=== PATIENT | male | born 1975 | race Two or more races ===

== ENCOUNTER 2023-01-24 11:38 | Emergency (ER) | payer SELFPAY ==
--- NOTE | 2023-01-24 11:49 | ED.URI ---
HPI - URI/Sore Throat General Chief Complaint: Back Pain/Injury <DARSHANA Correa - Last Filed: 01/24/23 11:52> Stated Complaint: Flu symptoms/Back pain <DARSHANA Correa - Last Filed: 01/24/23 11:52> Time Seen by Provider: 01/24/23 13:57 <DARSHANA Correa - Last Filed: 01/24/23 11:52> Source: patient <Angelita Jean NP - Last Filed: 01/24/23 14:57> Mode of arrival: ambulatory <Angelita Jean NP - Last Filed: 01/24/23 14:57> Limitations: no limitations <Angelita Jean NP - Last Filed: 01/24/23 14:57> History of Present Illness HPI Narrative: This is a 47-year-old male with a history of back pain who presents to the ER with complaints of acute on chronic back pain with no new injury or trauma. Patient reports that he has had back pain for greater than 6 years after having a work injury while he was in [place]. Patient reports he was taking medication for pain in [place] but he lost all his medications and moved here to [facility]. He denies any new injury or trauma. He reports pain radiates down the left leg with no associated numbness, tingling, weakness. Patient denies any saddle anesthesia. He denies any bowel or bladder incontinence. Denies any fevers or chills. Patient is ambulatory. Patient also reports nasal congestion with no reports of cough or fever. <Angelita Jean NP - Last Filed: 01/24/23 14:57> Related Data Home Medications: Previous Rx's Medication Instructions Recorded cyclobenzaprine 10 mg tablet 10 mg PO TID PRN muscle spasm #10 01/24/23 tabs ibuprofen 600 mg tablet 600 mg PO Q8H PRN pain #30 tabs 01/24/23 <DARSHANA Correa - Last Filed: 01/24/23 11:52> Allergies/Adverse Reactions: Allergies Allergy/AdvReac Type Severity Reaction Status Date / Time No Known Allergies Allergy Verified 01/24/23 11:50 <DARSHANA Correa - Last Filed: 01/24/23 11:52> Review of Systems Review of Systems: Yes all other systems are reviewed and are negative <Angelita Jean NP - Last Filed: 01/24/23 14:57> Constitutional: Constitutional: Reports no additional constitutional complaints, Denies body ache(s), Denies chills, Denies fever(s), Denies headache(s) and Denies weakness <Angelita Jean [employer] - Last Filed: 01/24/23 14:57> Eyes: Eyes: Reports no additional eye complaints and Denies change in vision <Angelita Jean [employer] - Last Filed: 01/24/23 14:57> ENT: Reports system reviewed and no additional complaints, except as documented, Denies dizziness, Denies headache(s), Reports nasal congestion, Denies nasal discharge and Denies neck pain <Angelita Jean [employer] - Last Filed: 01/24/23 14:57> Cardiovascular: Cardiovascular: Reports no additional cardiovascular complaints, Denies chest pain, Denies leg edema and Denies dyspnea <Angelita Jean [employer] - Last Filed: 01/24/23 14:57> Respiratory: Respiratory: Reports no additional respiratory complaints, Denies cough and Denies dyspnea <Angelita Jean [employer] - Last Filed: 01/24/23 14:57> Gastrointestinal: Gastrointestinal: Reports no additional gastrointestinal complaints, Denies abdominal pain, Denies diarrhea, Denies nausea and Denies vomiting <Angelita Jean [employer] - Last Filed: 01/24/23 14:57> Genitourinary: Genitourinary: Denies urinary incontinence <Angelita Jean [employer] - Last Filed: 01/24/23 14:57> Musculoskeletal: Musculoskeletal: Reports no additional musculoskeletal complaints, Reports back pain, Denies arthralgias, Denies joint swelling, Denies neck pain, Denies numbness and Denies tingling <Angelita Jean [employer] - Last Filed: 01/24/23 14:57> Integumentary/Breasts: Skin/Breast: Reports system reviewed and no additional complaints, except as docu and Denies rash <Angelita Jean [employer] - Last Filed: 01/24/23 14:57> Neurologic: Reports system reviewed and no additional complaints, except as documented, Denies Abnormal speech present, Denies dizziness, Denies headache(s), Denies numbness, Denies tingling and Denies weakness <Angleita Jean NP - Last Filed: 01/24/23 14:57> PMFSH Past Medical History Attestation statement: The following information was validated with the patient. <Angelita Jean NP - Last Filed: 01/24/23 14:57> Source: old records reviewed and nursing notes reviewed <Angelita Jean NP - Last Filed: 01/24/23 14:57> Social History Social History: Social History Smoked in Last 30 Days: No Use of substances other than those prescribed or required for medical reasons: No Advance Directives: No Advance Directives Information Provided: Yes <DARSHANA Correa - Last Filed: 01/24/23 11:52> Physical Exam Vital Signs: Vital Signs: Last Vital Signs Temp 98 F 01/24/23 11:50 Pulse 73 01/24/23 13:57 Resp 20 01/24/23 13:57 BP 143/81 H 01/24/23 13:57 Pulse Ox 96 01/24/23 13:57 O2 Del Method Room Air 01/24/23 13:57 BMI result Body Mass Index 29.7 <DARSHANA Correa - Last Filed: 01/24/23 11:52> Vital Signs: Last Vital Signs Temp 98 F 01/24/23 11:50 Pulse 73 01/24/23 13:57 Resp 20 01/24/23 13:57 BP 143/81 H 01/24/23 13:57 Pulse Ox 96 01/24/23 13:57 O2 Del Method Room Air 01/24/23 13:57 BMI result Body Mass Index 29.7 <Angelita Jean NP - Last Filed: 01/24/23 14:57> Const: General: cooperative, healthy appearing, comfortable and no acute distress <Angelita Jean NP - Last Filed: 01/24/23 14:57> Orientation/consciousness: patient oriented x3 <Angelita Jean [employer] - Last Filed: 01/24/23 14:57> Limitations: no limitations <Angelita Jean [employer] - Last Filed: 01/24/23 14:57> HEENT: Head: Yes normal to inspection <Angelita Jean [employer] - Last Filed: 01/24/23 14:57> Ears: hearing grossly normal bilaterally and TM's normal bilaterally <Angelita Jean [employer] - Last Filed: 01/24/23 14:57> General nose exam: Normal external nose present <Angelita Jean [employer] - Last Filed: 01/24/23 14:57> Face and sinus: Yes normal facial exam <Angelita Jean [employer] - Last Filed: 01/24/23 14:57> Mouth: Normal oral and palatal mucosa present <Angelita Jean [employer] - Last Filed: 01/24/23 14:57> Throat: Yes posterior oropharynx normal, Yes tonsils normal and Yes uvula midline <Angelita Jean [employer] - Last Filed: 01/24/23 14:57> Eyes: General: appearance normal, both eyes and all related structures <Angelita Jean [employer] - Last Filed: 01/24/23 14:57> Pupils: Equal, round and reactive pupils present <Angelita Jean [employer] - Last Filed: 01/24/23 14:57> Neck: Neck: Yes normal visual inspection, Yes full ROM, Yes no lymphadenopathy and Yes no meningeal signs <Angelita Jean [employer] - Last Filed: 01/24/23 14:57> Chest: Chest palpation & inspection: normal inspection of the chest <Angelita Jean [employer] - Last Filed: 01/24/23 14:57> Resp: Effort & Inspection: normal respiratory effort <Angelita Jean [employer] - Last Filed: 01/24/23 14:57> Auscultation: clear to auscultation bilaterally <Angelita Jean [employer] - Last Filed: 01/24/23 14:57> Cardio: Rate: regular rate <Angelita Jean [employer] - Last Filed: 01/24/23 14:57> Rhythm: regular rhythm <Angelita Jean [employer] - Last Filed: 01/24/23 14:57> Peripheral pulses: Peripheral pulses 2+ throughout <Angelita Jean [employer] - Last Filed: 01/24/23 14:57> GI: Inspection: Yes normal to inspection <Angelita Jean [employer] - Last Filed: 01/24/23 14:57> Palpation (GI): Soft to palpation and nontender <Angelita Jean [employer] - Last Filed: 01/24/23 14:57> Auscultation: normal bowel sounds <Angelita Jean [employer] - Last Filed: 01/24/23 14:57> Back/Spine/Pelvis: Other: Is tenderness the lumbar mid spine with no step-offs deformities. Pain is worse with flexion and extension of the lumbar spine <Angelita Jean [employer] - Last Filed: 01/24/23 14:57> Thoracic/Lumbar Spine: thoracic and lumbar spine normal to inspection <Angelita Jean [employer] - Last Filed: 01/24/23 14:57> Skin: General skin exam: no rashes or lesions noted <Angelita Jean [employer] - Last Filed: 01/24/23 14:57> Neuro: General: patient oriented x3, no meningeal signs, no focal motor deficits and normal sensation to monofilament <Angelita Jean [employer] - Last Filed: 01/24/23 14:57> Cranial nerves: Yes CN's II-XII intact bilaterally, Yes Equal, round and reactive pupils present, Yes Bilaterally intact EOM present, Yes Nystagmus not present, Yes Normal facial strength present and Yes Midline tongue present <Angelita Jean [employer] - Last Filed: 01/24/23 14:57> Cognition (Neuro): normal cognition <Angelita Jean [employer] - Last Filed: 01/24/23 14:57> Speech: No Abnormal speech present <Angelita Jean [employer] - Last Filed: 01/24/23 14:57> Gait exam (Neuro): Normal gait present <Angelita Jean [employer] - Last Filed: 01/24/23 14:57> Motor exam (neuro): 5/5 motor strength present throughout <Angelita Jean NP - Last Filed: 01/24/23 14:57> Sensory Exam: Normal double simultaneous stimulation for sensation <Angelitajohanna Jean NP - Last Filed: 01/24/23 14:57> Deep tendon reflexes (DTR's): Right patellar reflex intensity grade: 2+ and Left patellar reflex intensity grade: 2+ <Angelita Jean NP - Last Filed: 01/24/23 14:57> Extrem: General: Yes normal to inspection <Angelita Jean NP - Last Filed: 01/24/23 14:57> Course Course Course Narrative: RME - 47 yo Malian speaking male presents to the ER for evaluation of a cold for the last 2 days along with acute on chronic low back pain. Reports the back pain is in the left lower part and history of herniated discs. No recent fall or trauma. Has not taken any medications for the pain. Plan: viral swabs, treat back pain once in treatment room. <DARSHANA Correa - Last Filed: 01/24/23 11:52> Reevaluation(s) Reevaluation #1: Likely chronic back pain with some sciatica. Viral testing all negative. Patient will be discharged home with NSAID, muscle relaxant, medicated patches with recommendations to establish insurance and a primary care doctor here this date <Angelita Jean NP - Last Filed: 01/24/23 14:57> Medications Administered Discontinued Medications Generic Name Dose Route Start Last Admin Trade Name Freq PRN Reason Stop Dose Admin Ketorolac Tromethamine 30 mg 01/24/23 14:17 01/24/23 14:25 Ketorolac Tromethamine 30 Mg/Ml Vial IM 01/24/23 14:18 30 mg ONCE ONE Administration <DARSHANA Correa - Last Filed: 01/24/23 11:52> Medications Administered Discontinued Medications Generic Name Dose Route Start Last Admin Trade Name Freq PRN Reason Stop Dose Admin Ketorolac Tromethamine 30 mg 01/24/23 14:17 01/24/23 14:25 Ketorolac Tromethamine 30 Mg/Ml Vial IM 01/24/23 14:18 30 mg ONCE ONE Administration <Angelita Jean NP - Last Filed: 01/24/23 14:57> Medical Decision Making Medical Decision Making [facility] Narrative: 47-year-old male here with acute on chronic low back pain with no new injury or trauma. Patient with longstanding history of back pain that was previously being treated in [place]. Patient moves here recently and has no insurance or primary care provider. On exam patient with mild tenderness over the lumbar spine with no overt neurological deficits or red flag symptoms. Likely sciatica. Patient will be discharged home with Flexeril, NSAIDS, medicated patches Patient also complaining of some nasal congestion with no other complaints. Likely viral syndrome. However will tend testing for COVID and flu <Angelita Jean NP - Last Filed: 01/24/23 14:57> Differential Diagnosis Differential Diagnoses: The differential diagnosis associated with the presentation includes <Angelita Jean NP - Last Filed: 01/24/23 14:57> viral syndrome less likely epidural abscess, cord compression/caude equina, fracture, pyelo, renal colic, AAA <Angelita Jean NP - Last Filed: 01/24/23 14:57> Lab Data [facility] Lab Attestation statement: I reviewed the patient's lab results. <Angelita Jean NP - Last Filed: 01/24/23 14:57> Labs: Lab Results 01/24/23 01/24/23 Range/Units 11:55 11:55 COVID-19 ([facility]) Negative (Negative) COVID-19 Clin Com See Note Influenza Type A ([facility]) Negative (Negative) Influenza Type B ([facility]) Negative (Negative) Influenza A & B Note See Note <DARSHANA Correa - Last Filed: 01/24/23 11:52> Lab Results 01/24/23 01/24/23 Range/Units 11:55 11:55 COVID-19 ([facility]) Negative (Negative) COVID-19 Clin Com See Note Influenza Type A ([facility]) Negative (Negative) Influenza Type B ([facility]) Negative (Negative) Influenza A & B Note See Note <Angelita Jean NP - Last Filed: 01/24/23 14:57> Discharge Plan Discharge Clinical Impression: Sciatica, Acute viral syndrome <DARSHANA Correa - Last Filed: 01/24/23 11:52> Patient Disposition: Home, Self-Care <DARSHANA Correa - Last Filed: 01/24/23 11:52> Instructions: Sciatica (ED), Viral Syndrome (ED) <DARSHANA Correa - Last Filed: 01/24/23 11:52> Additional Instructions: Marlen pruebas de gripe y COVID son negativas. Debe establecer un seguro de clarence y un m?dico de atenci?n primaria aqu? en [place] para el control de rodriguez dolor cr?mandy. Sin levantar objetos pesados ??ni agacharse. Calienta o aplica hielo en el ?kenny afectada. <DARSHANA Correa - Last Filed: 01/24/23 11:52> Prescriptions: New cyclobenzaprine 10 mg tablet 10 mg PO TID PRN (Reason: muscle spasm) Qty: 10 0RF ibuprofen 600 mg tablet 600 mg PO Q8H PRN (Reason: pain) Qty: 30 0RF <DARSHANA Correa - Last Filed: 01/24/23 11:52> Stand Alone Forms: Work/School Release <DARSHANA Correa - Last Filed: 01/24/23 11:52> Interventions: ED Discharge Assessment Last Done: 01/24/23 14:30 <DARSHANA Correa - Last Filed: 01/24/23 11:52> Discharge Date/Time: 01/24/23 14:32 <DARSHANA Correa - Last Filed: 01/24/23 11:52> Print Language: Malian <DARSHANA Correa - Last Filed: 01/24/23 11:52>
[2023-01-24 11:50] VITALS: BP 141/77; PULSE 80; RESP 19; TEMP 36.6; O2SAT 97; BMI 29.7
[2023-01-24 12:20] LABS: COVID-19 Test Negative (Negative); IDNOW Serial# 08D9AD1C; IDNOW Serial# BCCEAD1C; Influenza A Negative (Negative); Influenza B2 Negative (Negative)
[2023-01-24 13:57] VITALS: BP 143/81; PULSE 73; RESP 20; O2SAT 96
[2023-01-24] MEDS: Ketorolac Tromethamine 30 MG/ML VIAL IM (14:25)
== END 2023-01-24 14:32 | disposition home or self-care (01) ==
PROVIDERS: Physician Assistant; Emergency Provider Emergency Medicine
DX: M54.42 Lumbago with sciatica, left side (principal); B34.9 Viral infection, unspecified; Z20.822 Contact with and (suspected) exposure to COVID-19; Z20.828 Contact with and (suspected) exposure to other viral communicable diseases; Z79.899 Other long term (current) drug therapy
CPT/HCPCS: 87502; 87635; 99284; J1885